=== PATIENT | female | born 1935 | race Caucasian/White ===

== ENCOUNTER 2017-10-09 11:37 | Emergency (ER) | payer OTHER ==
[~2017-10-09] VITALS: Ht 160 cm; Wt 59.0 kg
[~2017-10-09 11:37] MED LIST: ADVAIR HFA120 INHALA IH; ALEVE220 M2 PO; ASPIR-LOW81 MG PO; ATORVASTATIN CA20 MG PO; AUGMENTIN875 MG PO; BESIVANCE5 ML BOTH EYES; CALCET CREAMY1 EACH PO; CALCIUM 500 +1 EACH PO; CARTIA XT120 MG PO; CLOPIDOGREL75 MG PO; COMPLETE SENIO1 EACH PO; COREG3.125 M1 PO; COUMADIN3 MG PO; DIAZEPAM5 MG PO; DOCUSATE SODIU100 MG PO; ELIQUIS2.5 MG PO; ELIQUIS5 MG PO; FLONASE ALLERG9.9 ML BOTH NARES; HYCODAN SYRUP480 ML PO; LATANOPROST2.5 ML BOTH EYES; LISINOPRIL2.5 MG PO; PLAVIX75 MG PO; POLYETHYLENE GL17 GM PO; PRED FORTE100 DROP/5 BOTH EYES; PROAIR HFA8.5 GM IH; PROLENSA1.6 ML BOTH EYES; PROTONIX40 MG PO; SIMPLY SLEEP25 M1 PO; TESSALON PERLE100 MG PO; TRAMADOL HCL50 MG PO; TYLENOL EXTRA500 MG PO; UNISOM50 MG PO; WARFARIN SODIUM1 MG PO; WARFARIN SODIUM3 MG PO; ZESTRIL2.5 MG PO
[2017-10-09 12:50] LABS: HEMATOCRIT 57.2 % (36.0-46.0); HEMOGLOBIN 18.3 G/DL (11.9-15.5); INTER. NORMALIZED RATIO 1.7; MCV 84.4 FL (83-99); PLATELET COUNT 463 K/uL (156-360); RBC DIS.WIDTH-CV 17.5 % (11.8-14.6); RBC DIS.WIDTH-SD 47.9 % (39-53); RED BLOOD COUNT 6.78 M/uL (3.80-5.20); WHITE BLOOD COUNT 7.3 K/uL (4.1-10.2)
[2017-10-09 12:53] LABS: PTT 39.9 SEC (25-37)
[2017-10-09 12:55] LABS: ALBUMIN 4.1 g/dL (3.2-4.8); CHLORIDE 101 mEq/L (99-109); POTASSIUM 4.5 mEq/L (3.7-5.4); SODIUM 136 mEq/L (136-147)
[2017-10-09 12:58] LABS: GLUCOSE 100 mg/dL (70-99); TOTAL PROTEIN 8.2 g/dL (6.4-8.3)
[2017-10-09 13:00] LABS: TOTAL BILIRUBIN 0.8 mg/dL (0.0-1.0)
[2017-10-09 13:01] LABS: ALKALINE PHOSPHATASE 127 IU/L (3-129); CREATININE 0.8 mg/dL (0.6-1.3); GFR ESTIMATE (CALCULATED) > 59 mL/min/
[2017-10-09 13:02] LABS: UREA NITROGEN (BUN) 15 mg/dL (9-23)
[2017-10-09 13:03] LABS: AST (GOT) 25 IU/L (2-34)
[2017-10-09 13:04] LABS: ALT (GPT) 22 IU/L (3-49)
[2017-10-09 13:05] LABS: TROP-I INTERPRETATION NEGATIVE; TROPONIN-I < 0.01 ng/mL (0.0-0.30)
[2017-10-09] MEDS ORDERED: LIDODERM 5% P1 PATCH TD (15:10)
[2017-10-09] MEDS ORDERED: ULTRAM50 MG PO (15:10)
[2017-10-09 15:41] VITALS: BP 172/89
== END 2017-10-09 15:52 | disposition home or self-care (01) ==
LOC: EME 11:37
PROVIDERS: Nurse Practitioner Family
DX: M48.54XA Collapsed vertebra, not elsewhere classified, thoracic region, initial encounter for fracture (principal); M48.061 Spinal stenosis, lumbar region without neurogenic claudication; M51.36 Other intervertebral disc degeneration, lumbar region; I10 Essential (primary) hypertension; E78.5 Hyperlipidemia, unspecified; I25.2 Old myocardial infarction; Z86.718 Personal history of other venous thrombosis and embolism; Z86.711 Personal history of pulmonary embolism
CPT/HCPCS: 71275; 72129; 72132; 74174; 80053; 81003; 84484; 85027; 85610; 85730; 93005; 99281; 99285; J7030